=== PATIENT | female | born 1925 | race Hispanic/Latino ===

== ENCOUNTER 2017-03-22 14:13 | Emergency (ER) | payer MEDICARE, BC ==
[2017-03-22 14:25] VITALS: BMI 24.7
[2017-03-22 14:28] VITALS: TEMP 98.1
[2017-03-22] MEDS ORDERED: Lidocaine 1% Inj (20ml) ONE (15:01)
--- NOTE | 2017-03-22 15:07 | ED PDOC ---
Arrival/HPI - General Chief Complaint: Abnormal Skin Integrity Time Seen by Provider: 03/22/17 14:34 Historian: Patient - History of Present Illness Narrative History of Present Illness (Text): 03/22/17 14:50 89yr old female presents today with 1 week history of redness to the right thigh. pt denies fever/chills. c/o minimal sharp pain and pressure sensation to abscess. denies numbness, weakness, tingling in the extremity. no cp or sob. no abdominal pain. Time/Duration: 1 week Symptom Onset: Gradual Symptom Course: Worsening Quality: Aching Severity Level: 3 Past Medical History - Provider Review Nursing Documentation Reviewed: Yes - Travel History Have you recently traveled outside [place] w/in the past 3 mons?: No - Infectious Disease Hx of Infectious Diseases: None - Tetanus Immunization Tetanus Immunization: Unknown - Cardiac Hx Cardiac Disorders: Yes Hx Congestive Heart Failure: Yes Hx Pacemaker: Yes - Pulmonary Hx Respiratory Disorders: No - Neurological Hx Neurological Disorder: No - HEENT Hx HEENT Disorder: Yes Hx Deafness: Yes (BILATERAL HEARING AIDE) - Renal Hx Renal Disorder: Yes - Endocrine/Metabolic Hx Hypothyroidism: Yes - Hematological/Oncological Hx Blood Disorders: No Hx Anemia: Yes - Integumentary Hx Dermatological Disorder: Yes (BILATERAL LEG EDEMA NON PITTING,FLUSHED SKIN, TENSE,) - Musculoskeletal/Rheumatological Hx Musculoskeletal Disorders: Yes Hx Falls: Yes Hx Unsteady Gait: Yes (CANE OR WALKER) - Gastrointestinal Hx Gastrointestinal Disorders: Yes Hx Gastroesophageal Reflux: Yes - Genitourinary/Gynecological Hx Genitourinary Disorders: Yes (URGENCY) - Psychiatric Hx Psychophysiologic Disorder: Yes Hx Anxiety: Yes Hx Depression: No Hx Emotional Abuse: No Hx Physical Abuse: No Hx Substance Use: No - Past Surgical History Past Surgical History: Unable to Obtain - Surgical History Hx Orthopedic Surgery: Yes (RIGHT HIP SX) Other/Comment: breast surgery - Anesthesia Hx Anesthesia: Yes Hx Anesthesia Reactions: No Hx Malignant Hyperthermia: No - Suicidal Assessment Feels Threatened In Home Enviroment: No Family/Social History - Physician Review Nursing Documentation Reviewed: Yes Family/Social History: Unknown Family HX Smoking Status: Never Smoked Hx Alcohol Use: No Hx Substance Use: No Hx Substance Use Treatment: No Allergies/Home Meds Allergies/Adverse Reactions: Allergies No Known Allergies Allergy (Verified 03/22/17 14:25) Home Medications: Home Meds Medication Instructions Recorded Confirmed Escitalopram [Lexapro] 10 mg PO DAILY 12/07/16 02/15/17 Caltrate 600+D Plus Tablet 1 tab PO DAILY 01/25/17 02/15/17 Esomeprazole Magnesium [Nexium] 20 mg PO DAILY 01/25/17 02/15/17 Multivit-Min/FA/Lycopen/Lutein 1 each PO DAILY 01/25/17 02/15/17 [Centrum Silver Tablet] Naproxen [Naprosyn Tab] 500 mg PO DAILY 01/25/17 02/15/17 Aspirin [Adult Low Dose Aspirin EC] 81 mg PO DAILY 02/15/17 02/15/17 Furosemide [Lasix] 20 mg PO DAILY 02/15/17 02/15/17 Levothyroxine [Synthroid] 150 mcg PO DAILY 02/15/17 02/15/17 Review of Systems - Review of Systems Constitutional: absent: Fatigue, Fevers Respiratory: absent: SOB, Cough Cardiovascular: absent: Chest Pain, Palpitations Gastrointestinal: absent: Abdominal Pain, Nausea, Vomiting Genitourinary Female: absent: Dysuria Musculoskeletal: absent: Arthralgias, Back Pain, Neck Pain Skin: Abscess Neurological: absent: Headache, Dizziness Psychiatric: absent: Anxiety, Depression Physical Exam Vital Signs Reviewed: Yes Vital Signs Temp Pulse Resp BP Pulse Ox 03/22/17 15:30 80 18 112/77 98 03/22/17 14:27 98.1 F 76 17 108/76 97 Temperature: Afebrile Blood Pressure: Normal Pulse: Regular Respiratory Rate: Normal Appearance: Positive for: Well-Appearing, Non-Toxic, Comfortable Pain Distress: None Mental Status: Positive for: Alert and Oriented X 3 - Systems Exam Head: Present: Atraumatic Neck: Present: Normal Range of Motion Respiratory/Chest: Present: Clear to Auscultation, Good Air Exchange. No: Respiratory Distress, Accessory Muscle Use Cardiovascular: Present: Regular Rate and Rhythm, Normal S1, S2. No: Murmurs Lower Extremity: Present: Normal ROM, Tenderness (right thigh; there is a 3cm round fluctuant mobile area of erythema along the lateral aspect of the thigh; minimally tender; full rom hip; hip non tender. ambulates with cane. sensation and distal pulses intact. ), Erythema, Neurovascularly Intact, Capillary Refill < 2 s. No: Swelling, Deformity Skin: Present: Warm, Dry Psychiatric: Present: Alert, Oriented x 3 Medical Decision Making ED Course and Treatment: 03/22/17 15:29 Patient is nontoxic well-appearing in no distress. Vital signs are stable. bactrim/kelfex pt seen and evaluated by dr. yusuf; will do I&D and treat with abx. I&D performed; no purulent discharge released; packing placed; will place patient on abx and have patient f/u with surgeon and return in 2 days for packing removal and wound check/re-evaluation. family requesting Dr. Campoverde referral. Patient was advised to use warm compresses. take abx as prescribed. return to the emergency room in 2 days for packing removal. stressed importance of immediate return if symptoms worsen persist or if new symptoms develop; high fevers, increasing pain, redness, swelling or if any other concerning symptoms develop. Patient verbalizes understanding of discharge instructions and need for immediate followup. all aspects of this case were discussed the attending of record. Impression: Abscess, thigh Motrin one tablet every 6 hours as needed for pain Keflex 1 capsule 4 times daily 7 days Bactrim DS: One tablet twice daily x7 days Warm compresses and warm soaks frequently Return in 2 days for packing removal and wound check follow up with the surgeon within the next 2days follow up with the primary care physician within the next 2 days. Return immediately if symptoms worsen persist or if new symptoms develop: High fevers, increasing pain, increasing redness, swelling or if any other concerning symptoms develop. 03/22/17 15:46 - Medication Orders Current Medication Orders: Discontinued Medications Cephalexin Monohydrate (Keflex) 500 mg PO STAT STA PRN Reason: Protocol Stop: 03/22/17 15:25 Last Admin: 03/22/17 15:56 Dose: 500 MG Lidocaine HCl (Lidocaine 1% (20ml)) Confirm Administered Dose 20 ml .ROUTE .STK- MED ONE Stop: 03/22/17 15:02 Last Admin: 03/22/17 15:43 Dose: 20 ML Trimethoprim/Sulfamethoxazole (Bactrim Ds Tab) 1 tab PO STAT STA PRN Reason: Protocol Stop: 03/22/17 15:25 Last Admin: 03/22/17 15:56 Dose: 1 TAB Procedures - Incision and Drainage Site: right thigh Blade Size: 11 I & D Procedure: sterile drapes applied, sterile dressing applied, gauze wick placed Progress: right thigh; 3cm abscess 2cc lidocaine injected locally using sterile technique; adequate anesthesia, small incision made of central fluctuance; no purulent discharge released; 1/ 4in packing placed. dressing applied. pt tolerated procedure well, no complications. Disposition/Present on Arrival - Present on Arrival Any Indicators Present on Arrival: No History of DVT/PE: No History of Uncontrolled Diabetes: No Urinary Catheter: No History of Decub. Ulcer: No History Surgical Site Infection Following: None - Disposition Have Diagnosis and Disposition been Completed?: Yes Diagnosis: Abscess of thigh Disposition: HOME/ ROUTINE Disposition Time: 15:25 Patient Plan: Discharge Condition: GOOD Discharge Instructions (ExitCare): Abscess (ED) Additional Instructions: tylenol every 4 hours as needed for pain Bactrim DS: One tablet twice daily x7 days keflex; 1 capsule 4 times daily x 7 days Warm compresses frequently Return in 2 days for packing removal and wound check Follow up with the surgeon within the next 2 days Follow up with the primary care physician within the next 2 days. Return immediately if symptoms worsen persist or if new symptoms develop: High fevers, increasing pain, increasing redness, swelling or if any other concerning symptoms develop. Prescriptions: Sulfamethoxazole/Trimethoprim [Bactrim DS 800 mg-160 mg] 1 tab PO BID #14 tab Cephalexin [Keflex] 500 mg PO QID #28 capsule Referrals: Jeyson Campoverde MD [Staff Provider] - Follow up with primary Cole Polanco DO [Staff Provider] - Follow up with primary Alton Simms MD [Primary Care Provider] - Follow up with primary
[2017-03-22] MEDS ORDERED: Tmp-Smz 800 mg-160 mg DS Tab PO STA (15:24)
[2017-03-22 16:03] VITALS: BP 112/77; PULSE 80; RESP 18; O2SAT 98
== END 2017-03-22 16:14 | disposition home or self-care (01) ==
LOC: ED 14:13
DX: L02.415 Cutaneous abscess of right lower limb (principal)

== ENCOUNTER 2017-06-09 11:06 | Observation (INO) | payer MEDICARE, BC ==
[2017-06-09 12:29] LABS: BASO # 0.01 K/mm3 (0.0-2.0); BASO % 0.2 % (0.0-3.0); EOS # 0.4 (0.0-0.7); EOS % 8.6 % (1.5-5.0); GRAN # 1.81 (1.4-6.5); LYMPH # 1.3 (1.2-3.4); LYMPH % 29.7 % (22.0-35.0); MEAN CELL VOLUME 95.6 fL (80.0-105.0); MEAN CORPUSCULAR HEMOGLOBIN 29.2 pg (25.0-35.0); MEAN CORPUSCULAR HGB CONC 30.6 g/dl (31.0-37.0); MEAN PLATELET VOLUME 9.8 fl (7.0-11.0); MONO # 0.8 (0.1-0.6); MONO % 19.5 % (1.0-6.0); PLATELET COUNT 241 10^3/uL (120.0-450.0); RBC 2.26 10^6/uL (3.5-6.1); RED CELL DISTRIBUTION WIDTH 19.7 % (11.5-14.5); WHITE BLOOD COUNT 4.3 10^3/ul (4.5-11.0)
[2017-06-09 12:34] LABS: HEMOGLOBIN 6.6 gm/dL (12.0-16.0)
[2017-06-09 12:36] LABS: ALB/GLOB RATIO 1.4 (1.1-1.8); ALBUMIN 3.9 g/dL (3.0-4.8); ALT/SGPT 22 U/L (7-56); AMYLASE 95 U/L (35-125); AST/SGOT 32 U/L (15-39); BLOOD UREA NITROGEN 34 mg/dL (7-21); CALCIUM 9.2 mg/dL (8.4-10.5); GFR AFRICAN-AMERICAN 57; GFR NON-AFRICAN AMERICAN 47; LIPASE 51 U/L (23-300)
[2017-06-09 12:37] LABS: INR 1.06 (0.93-1.08); PARTIAL THROMBOPLASTIN TIME 26.3 Seconds (23.7-30.8); PROTHROMBIN TIME 11.5 Seconds (9.9-11.8)
--- NOTE | 2017-06-09 12:40 | ED PDOC ---
Arrival/HPI - General Chief Complaint: Medical Clearance Time Seen by Provider: 06/09/17 11:13 Historian: Patient - History of Present Illness Narrative History of Present Illness (Text): 06/09/17 12:12 A 89 year old female, whose past medical history includes iron deficiency and right hip replacement, who is advised to come to the emergency department by her hydrodynamicist. Patient reports yesterday she went to her hydrodynamicist's office and received an iron infusion and this morning she received a phone call from her office stating her hemoglobin is low and she should come to the emergency department for a blood transfusion. Patient notes she does have some fatigue. She says she denies any fever, chills, nausea, vomiting, chest pain, shortness of breath, headache, dizziness or any other complaints at this time. Social Services Analyst: Dr. Castillo Past Medical History - Provider Review Nursing Documentation Reviewed: Yes - Infectious Disease Hx of Infectious Diseases: None - Tetanus Immunization Tetanus Immunization: Unknown - Reproductive Menopause: Yes - Cardiac Hx Cardiac Disorders: Yes Hx Congestive Heart Failure: Yes Hx Pacemaker: Yes - Pulmonary Hx Respiratory Disorders: No - Neurological Hx Neurological Disorder: No - HEENT Hx HEENT Disorder: Yes Hx Deafness: Yes (BILATERAL HEARING AIDE) - Renal Hx Renal Disorder: Yes - Endocrine/Metabolic Hx Hypothyroidism: Yes - Hematological/Oncological Hx Blood Disorders: No Hx Anemia: Yes - Integumentary Hx Dermatological Disorder: Yes (BILATERAL LEG EDEMA NON PITTING,FLUSHED SKIN, TENSE,) - Musculoskeletal/Rheumatological Hx Musculoskeletal Disorders: Yes Hx Falls: Yes Hx Unsteady Gait: Yes (CANE OR WALKER) - Gastrointestinal Hx Gastrointestinal Disorders: Yes Hx Gastroesophageal Reflux: Yes - Genitourinary/Gynecological Hx Genitourinary Disorders: Yes (URGENCY) - Psychiatric Hx Psychophysiologic Disorder: Yes Hx Anxiety: Yes Hx Depression: No Hx Emotional Abuse: No Hx Physical Abuse: No Hx Substance Use: No - Past Surgical History Past Surgical History: Unable to Obtain - Surgical History Hx Orthopedic Surgery: Yes (RIGHT HIP SX) Other/Comment: breast surgery - Anesthesia Hx Anesthesia: Yes Hx Anesthesia Reactions: No Hx Malignant Hyperthermia: No - Suicidal Assessment Feels Threatened In Home Enviroment: No Family/Social History - Physician Review Nursing Documentation Reviewed: Yes Family/Social History: Unknown Family HX Smoking Status: Never Smoked Hx Alcohol Use: No Hx Substance Use: No Hx Substance Use Treatment: No Allergies/Home Meds Allergies/Adverse Reactions: Allergies No Known Allergies Allergy (Verified 06/09/17 11:31) Home Medications: Home Meds Medication Instructions Recorded Confirmed Escitalopram [Lexapro] 10 mg PO DAILY 12/07/16 02/15/17 Caltrate 600+D Plus Tablet 1 tab PO DAILY 01/25/17 02/15/17 Esomeprazole Magnesium [Nexium] 20 mg PO DAILY 01/25/17 02/15/17 Multivit-Min/FA/Lycopen/Lutein 1 each PO DAILY 01/25/17 02/15/17 [Centrum Silver Tablet] Naproxen [Naprosyn Tab] 500 mg PO DAILY 01/25/17 02/15/17 Aspirin [Adult Low Dose Aspirin EC] 81 mg PO DAILY 02/15/17 02/15/17 Furosemide [Lasix] 20 mg PO DAILY 02/15/17 02/15/17 Levothyroxine [Synthroid] 150 mcg PO DAILY 02/15/17 02/15/17 Review of Systems - Physician Review All systems were reviewed & negative as marked: Yes - Review of Systems Constitutional: Fatigue (but usual). absent: Fevers Respiratory: absent: SOB Cardiovascular: absent: Chest Pain Gastrointestinal: absent: Abdominal Pain, Nausea, Vomiting, Hematochezia Genitourinary Female: absent: Hematuria Musculoskeletal: absent: Back Pain, Neck Pain Neurological: absent: Headache, Dizziness Physical Exam Vital Signs Reviewed: Yes Vital Signs Temp Pulse Resp BP Pulse Ox 06/09/17 11:24 98.5 F 82 20 119/46 L 97 Temperature: Afebrile Blood Pressure: Hypotensive Pulse: Regular Respiratory Rate: Normal Appearance: Positive for: Well-Appearing, Non-Toxic, Comfortable Pain Distress: None Mental Status: Positive for: Alert and Oriented X 3 - Systems Exam Head: Present: Atraumatic, Normocephalic Pupils: Present: PERRL Conjunctiva: Present: Other (pale) Mouth: Present: Moist Mucous Membranes Pharnyx: Present: Normal. No: ERYTHEMA, EXUDATE Neck: Present: Normal Range of Motion Respiratory/Chest: Present: Clear to Auscultation, Good Air Exchange. No: Respiratory Distress, Accessory Muscle Use Cardiovascular: Present: Regular Rate and Rhythm, Murmurs, Normal S1, S2 Abdomen: Present: Normal Bowel Sounds. No: Tenderness, Distention, Peritoneal Signs Back: Present: Normal Inspection Upper Extremity: Present: Normal Inspection. No: Cyanosis, Edema Lower Extremity: Present: Edema (trace edema bilaterally) Neurological: Present: GCS=15, CN II-XII Intact, Speech Normal Skin: Present: Warm, Dry, Normal Color. No: Rashes Psychiatric: Present: Alert, Oriented x 3, Normal Insight, Normal Concentration Medical Decision Making ED Course and Treatment: 06/09/17 12:12 Impression: A 89 year old female with a low hemoglobin count. Differential Diagnosis included but are not limited to: anemia Plan: -- Labs -- Reassess and disposition Prior Visits: Notes and results from previous visits were reviewed. The patient last presented to the emergency department on 03/25/17 for evaluation of redness to the right thigh. Progress Notes: 06/09/17 13:29 Patient with noted history. Hgb is 6.6 - will need at least 2 units PRBC for transfusion. She is hemodynamically stable with no cardiopulmonary symptoms - will place on observation for blood transfusion; consented for transfusion. Case discussed with Dr. Castillo for placement on her service. - Lab Interpretations Lab Results: 06/09/17 11:40 06/09/17 11:40 Lab Results 06/09/17 11:50: Blood Type Pending, Antibody Screen Pending, Crossmatch See Detail, BBK History Checked Patient has bt 06/09/17 11:40: Sodium 142, Potassium 4.1, Chloride 107, Carbon Dioxide 24, Anion Gap 15, BUN 34 H, Creatinine 1.1, Est GFR ( Amer) 57, Est GFR (Non- Af Amer) 47, Random Glucose 92, Calcium 9.2, Total Bilirubin 0.3, AST 32, ALT 22 , Alkaline Phosphatase 47, Lactate Dehydrogenase 501, Total Creatine Kinase 40, Troponin I < 0.01, Total Protein 6.7, Albumin 3.9, Globulin 2.8, Albumin/ Globulin Ratio 1.4, Amylase 95, Lipase 51 06/09/17 11:40: PT 11.5, INR 1.06, APTT 26.3 06/09/17 11:40: WBC 4.3 L D, RBC 2.26 L, Hgb 6.6 L* D, Hct 21.6 L, MCV 95.6, MCH 29.2, MCHC 30.6 L, RDW 19.7 H, Plt Count 241, MPV 9.8, Gran % 42.0 L, Lymph % (Auto) 29.7, [place] % (Auto) 19.5 H, Eos % (Auto) 8.6 H, Baso % (Auto) 0.2, Gran # 1.81, Lymph # 1.3, [place] # 0.8 H, Eos # 0.4, Baso # 0.01 I have reviewed the lab results: Yes - Scribe Statement The provider has reviewed the documentation as recorded by the Prestonibe Antonietta Berman Provider Scribe Attestation: All medical record entries made by the Prestonibfallon were at my direction and personally dictated by me. I have reviewed the chart and agree that the record accurately reflects my personal performance of the history, physical exam, medical decision making, and the department course for this patient. I have also personally directed, reviewed, and agree with the discharge instructions and disposition. Disposition/Present on Arrival - Present on Arrival Any Indicators Present on Arrival: No History of DVT/PE: No History of Uncontrolled Diabetes: No Urinary Catheter: No History of Decub. Ulcer: No History Surgical Site Infection Following: None - Disposition Have Diagnosis and Disposition been Completed?: Yes Diagnosis: Anemia Disposition: HOSPITALIZED Disposition Time: 13:00 Patient Plan: Observation Condition: FAIR
[2017-06-09 13:20] LABS: TROPONIN I < 0.01 ng/mL
--- NOTE | 2017-06-09 15:25 | RAD ---
HISTORY: anemia COMPARISON: 12/10/2016 TECHNIQUE: Chest PA and lateral FINDINGS: LUNGS: No active pulmonary disease. PLEURA: No significant pleural effusion identified. No pneumothorax apparent. CARDIOVASCULAR: Normal. OSSEOUS STRUCTURES: No significant abnormalities. VISUALIZED UPPER ABDOMEN: Normal. OTHER FINDINGS: Dual lead pacemaker IMPRESSION: No active disease.
[2017-06-09] MEDS ORDERED: Non Formulary Medication (Esomeprazole Magnesium [Nexium] 20 MG) PO SCH (16:30)
[2017-06-09] MEDS ORDERED: Levothyroxine 125 MCG TAB PO SCH (16:30)
[2017-06-09 19:19] VITALS: BMI 23.3
[2017-06-10 05:47] VITALS: PULSE 68; RESP 19
[2017-06-10] MEDS ORDERED: Pantoprazole 40 mg EC Tab PO SCH (07:30)
[2017-06-10] MEDS ORDERED: Levothyroxine 150 MCG TAB PO SCH (07:30)
[2017-06-10 07:40] VITALS: BP 144/62; TEMP 98; O2SAT 97
[2017-06-10 07:43] LABS: BASO # 0.01 K/mm3 (0.0-2.0); BASO % 0.2 % (0.0-3.0); EOS # 0.2 (0.0-0.7); EOS % 4.1 % (1.5-5.0); GRAN # 2.52 (1.4-6.5); HEMOGLOBIN 9.4 gm/dL (12.0-16.0); LYMPH # 0.6 (1.2-3.4); LYMPH % 13.8 % (22.0-35.0); MEAN CELL VOLUME 93.8 fL (80.0-105.0); MEAN CORPUSCULAR HEMOGLOBIN 29.3 pg (25.0-35.0); MEAN CORPUSCULAR HGB CONC 31.2 g/dl (31.0-37.0); MEAN PLATELET VOLUME 9.5 fl (7.0-11.0); MONO # 1.1 (0.1-0.6); MONO % 24.9 % (1.0-6.0); PLATELET COUNT 186 10^3/uL (120.0-450.0); RBC 3.21 10^6/uL (3.5-6.1); RED CELL DISTRIBUTION WIDTH 17.9 % (11.5-14.5); WHITE BLOOD COUNT 4.4 10^3/ul (4.5-11.0)
[2017-06-10 07:58] LABS: BLOOD UREA NITROGEN 24 mg/dL (7-21); GFR AFRICAN-AMERICAN > 60; GFR NON-AFRICAN AMERICAN 52
--- NOTE | 2017-06-10 22:38 | CP.PCM.HP ---
History of Present Illness - History of Present Illness History of Present Illness: Ms. Gonzalez is a 89 year old female who was found to have Hemoglobin of 6.5 on 06/08 on a CBC done in office. She was advised to go to ER for evaluation and blood transfusion. 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 Bundy . She has been gettin IV iron in office. She has required blood transfusion few times in recent past. Stool occult blood has been positive . No obvious GI bleed. She has chronic infection in right thigh . She has been advised that hip prosthesis on right side need to be changed. Denies shortness of breath. Present on Admission - Present on Admission Any Indicators Present on Admission: No Review of Systems - Constitutional Constitutional: Fatigue, Malaise, Weakness - EENT Eyes: absent: As Per HPI, Blind Spots, Blurred Vision, Change in Vision, Decreased Night Vision, Diplopia, Discharge, Dry Eye, Exophthalmos, Floaters, Irritation, Itchy Eyes, Loss of Peripheral Vision, Pain, Photophobia, Requires Corrective Lenses, Sees Flashes, Spots in Vision, Tunnel Vision, Other Visual Disturbances, Loss of Vision, Other Ears: absent: As Per HPI, Decreased Hearing, Ear Discharge, Ear Pain, Tinnitus, Abnormal Hearing, Disequilibrium, Dizziness, Other Nose/Mouth/Throat: absent: As Per HPI, Epistaxis, Nasal Congestion, Nasal Discharge, Nasal Obstruction, Nasal Trauma, Nose Pain, Post Nasal Drip, Sinus Pain, Sinus Pressure, Bleeding Gums, Change in Voice, Dental Pain, Dry Mouth, Dysphagia, Halitosis, Hoarsness, Lip Swelling, Mouth Lesions, Mouth Pain, Odynophagia, Sore Throat, Throat Swelling, Tongue Swelling, Facial Pain, Neck Pain, Neck Mass, Other - Breasts Breasts: absent: As Per HPI, Change in Shape, Mass, Pain, Nipple Discharge, Nipple Inversion, Skin Changes, Swelling, Other - Cardiovascular Cardiovascular: As Per HPI - Respiratory Respiratory: absent: As Per HPI, Cough, Dyspnea, Hemoptysis, Dyspnea on Exertion , Wheezing, Snoring, Stridor, Pain on Inspiration, Chest Congestion, Excessive Mucous Production, Change in Mucous Color, Pain with Coughing, Other - Gastrointestinal Gastrointestinal: As Per HPI - Genitourinary Genitourinary: absent: As Per HPI, Change in Urinary Stream, Difficulty Urinating, Dysuria, Flank Pain, Hematuria, Pyuria, Nocturia, Urinary Incontinence, Urinary Frequency, Urinary Hesitance, Urinary Urgency, Voiding Freq/Small Amts, Freq UTI, Hx Renal/Bladder Calculi, Hx /Renal Surgery, Bladder Distension, Other - Integumentary Integumentary: As Per HPI - Neurological Neurological: absent: As Per HPI, Abnormal Gait, Abnormal Hearing, Abnormal Movements, Abnormal Speech, Behavioral Changes, Burning Sensations, Confusion, Convulsions, Disequilibrium, Dizziness, Numbness, Focal Weakness, Frequent Falls , Headaches, Lack of Coordination, Loss of Vision, Memory Loss, Paresthesias, Radicular Pain, Restless Legs, Sensory Deficit, Syncope, Tingling, Tremor, Vertigo, Weakness, Other Visual Disturbances, Other - Psychiatric Psychiatric: absent: As Per HPI, Abnormal Sleep Pattern, Anhedonia, Anxiety, Auditory Hallucinations, Behavioral Changes, Change in Appetite, Change in Libido, Confusion, Depression, Difficulty Concentrating, Hallucinations, Homicidal Ideation, Hopelessness, Irritability, Memory Loss, Mood Swings, Panic Attacks, Paranoia, Suicidal Ideation, Visual Hallucinations, Tactile Hallucinations, Other - Endocrine Endocrine: absent: As Per HPI, Change in Body Appearance, Change in Libido, Cold Intolorance, Deepening of Voice, Excessive Sweating, Fatigue, Flushing, Heat Intolorance, Increase in Ring/Shoe/Hat Size, Palpitations, Polydipsia, Polyphagia, Polyuria, Other - Hematologic/Lymphatic Hematologic: As Per HPI Past Patient History - Infectious Disease Hx of Infectious Diseases: None - Tetanus Immunizations Tetanus Immunization: Unknown - Past Medical History & Family History Past Medical History?: Yes Past Family History: Reviewed and not pertinent - Past Social History Smoking Status: Never Smoked - CARDIAC Hx Cardiac Disorders: Yes Hx Congestive Heart Failure: Yes Hx Pacemaker: Yes - PULMONARY Hx Respiratory Disorders: No - NEUROLOGICAL Hx Neurological Disorder: No - HEENT Hx HEENT Problems: Yes Hx Deafness: Yes (BILATERAL HEARING AIDE) - RENAL Hx Chronic Kidney Disease: Yes - ENDOCRINE/METABOLIC Hx Hypothyroidism: Yes - HEMATOLOGICAL/ONCOLOGICAL Hx Blood Disorders: No (Iron deficiency) Hx Anemia: Yes - INTEGUMENTARY Hx Dermatological Problems: Yes (BILATERAL LEG EDEMA NON PITTING,FLUSHED SKIN, TENSE,) - MUSCULOSKELETAL/RHEUMATOLOGICAL Hx Musculoskeletal Disorders: Yes Hx Falls: Yes Hx Unsteady Gait: Yes (CANE OR WALKER) - GASTROINTESTINAL Hx Gastrointestinal Disorders: Yes Hx Gastroesophageal Reflux: Yes - GENITOURINARY/GYNECOLOGICAL Hx Genitourinary Disorders: Yes (URGENCY) - PSYCHIATRIC Hx Psychophysiologic Disorder: Yes Hx Anxiety: Yes Hx Depression: No Hx Emotional Abuse: No Hx Physical Abuse: No - SURGICAL HISTORY Hx Surgeries: Yes (breast surgery) Hx Orthopedic Surgery: Yes (RIGHT HIP SX x2) - ANESTHESIA Hx Anesthesia: Yes Hx Anesthesia Reactions: No Hx Malignant Hyperthermia: No Meds Allergies/Adverse Reactions: Allergies Allergy/AdvReac Type Severity Reaction Status Date / Time No Known Allergies Allergy Verified 06/09/17 19:07 Physical Exam - Constitutional Appears: Well, Non-toxic - Head Exam Head Exam: ATRAUMATIC, NORMAL INSPECTION, NORMOCEPHALIC - Eye Exam Eye Exam: Normal appearance - ENT Exam ENT Exam: Mucous Membranes Moist - Neck Exam Neck exam: Positive for: Normal Inspection - Cardiovascular Exam Cardiovascular Exam: REGULAR RHYTHM, +S1, +S2 - GI/Abdominal Exam GI & Abdominal Exam: Normal Bowel Sounds, Soft - Extremities Exam Extremities exam: Positive for: normal inspection - Back Exam Back exam: NORMAL INSPECTION - Neurological Exam Neurological exam: Alert, Normal Gait, Oriented x3 - Psychiatric Exam Psychiatric exam: Normal Affect, Normal Mood - Skin Skin Exam: Normal Color, Warm Results - Vital Signs Recent Vital Signs: Last Vital Signs Temp 98 F 06/10/17 07:40 Pulse 68 06/10/17 07:40 Resp 19 06/10/17 07:40 BP 144/62 06/10/17 07:40 Pulse Ox 97 06/10/17 07:40 - Labs Result Diagrams: 06/10/17 07:00 06/10/17 07:00 Labs: Laboratory Results - last 24 hr 06/10/17 06/10/17 07:00 07:00 WBC 4.4 L RBC 3.21 L Hgb 9.4 L Hct 30.1 L MCV 93.8 MCH 29.3 MCHC 31.2 RDW 17.9 H Plt Count 186 MPV 9.5 Gran % 57.0 Lymph % (Auto) 13.8 L [place] % (Auto) 24.9 H Eos % (Auto) 4.1 Baso % (Auto) 0.2 Gran # 2.52 Lymph # 0.6 L [place] # 1.1 H Eos # 0.2 Baso # 0.01 Sodium 142 Potassium 3.7 Chloride 107 Carbon Dioxide 26 Anion Gap 13 BUN 24 H Creatinine 1.0 Est GFR ( Amer) > 60 Est GFR (Non-Af Amer) 52 Random Glucose 90 Calcium 9.0 Assessment & Plan - Assessment and Plan (Free Text) Assessment: 1. Severe Anemia : Hb 6.5 gm/dl. 2 units of PRBC ordered. Lasix 20 mg after second unit. She has occult GI bleed . Stool occult blood positive. She had EGD, colonoscopy this year. Has an AVM in stomach cauterized . 2. CHF : compensated. Continue lasix 20 mg daily. 3. COPD : stable. 4. Right thigh chronic infection : follows with ortho. wound vac discontinued. - Date & Time Date: 06/09/17 Time: 18:00
--- NOTE | 2017-06-10 22:50 | CP.PCM.DIS ---
Provider - Provider Date of Admission: 06/09/17 13:15 Attending physician: Soraida Castillo MD Primary care physician: Eh Weaver MD Time Spent in preparation of Discharge (in minutes): 55 Diagnosis - Discharge Diagnosis (1) CHF (congestive heart failure) Status: Chronic Comment: stable. (2) COPD (chronic obstructive pulmonary disease) Status: Chronic Comment: stable (3) Non-pressure chronic ulcer of right thigh Status: Chronic Comment: chronic (4) Anemia Status: Acute Comment: acute on chronic anemia (5) Iron (Fe) deficiency anemia Status: Acute Comment: occult GI bleed (6) Anemia Status: Acute Hospital Course - Lab Results Lab Results: Most Recent Lab Values WBC 4.4 10^3/ul (4.5-11.0) L 06/10/17 07:00 RBC 3.21 10^6/uL (3.5-6.1) L 06/10/17 07:00 Hgb 9.4 gm/dL (12.0-16.0) L 06/10/17 07:00 Hct 30.1 % (36.0-48.0) L 06/10/17 07:00 MCV 93.8 fL (80.0-105.0) 06/10/17 07:00 MCH 29.3 pg (25.0-35.0) 06/10/17 07:00 MCHC 31.2 g/dl (31.0-37.0) 06/10/17 07:00 RDW 17.9 % (11.5-14.5) H 06/10/17 07:00 Plt Count 186 10^3/uL (120.0-450.0) 06/10/17 07:00 MPV 9.5 fl (7.0-11.0) 06/10/17 07:00 Gran % 57.0 % (50.0-68.0) 06/10/17 07:00 Lymph % (Auto) 13.8 % (22.0-35.0) L 06/10/17 07:00 [place] % (Auto) 24.9 % (1.0-6.0) H 06/10/17 07:00 Eos % (Auto) 4.1 % (1.5-5.0) 06/10/17 07:00 Baso % (Auto) 0.2 % (0.0-3.0) 06/10/17 07:00 Gran # 2.52 (1.4-6.5) 06/10/17 07:00 Lymph # 0.6 (1.2-3.4) L 06/10/17 07:00 [place] # 1.1 (0.1-0.6) H 06/10/17 07:00 Eos # 0.2 (0.0-0.7) 06/10/17 07:00 Baso # 0.01 K/mm3 (0.0-2.0) 06/10/17 07:00 PT 11.5 Seconds (9.9-11.8) 06/09/17 11:40 INR 1.06 (0.93-1.08) 06/09/17 11:40 APTT 26.3 Seconds (23.7-30.8) 06/09/17 11:40 Sodium 142 mmol/L (132-148) 06/10/17 07:00 Potassium 3.7 mmol/L (3.6-5.0) 06/10/17 07:00 Chloride 107 mmol/L (98-107) 06/10/17 07:00 Carbon Dioxide 26 mmol/L (21-33) 06/10/17 07:00 Anion Gap 13 (10-20) 06/10/17 07:00 BUN 24 mg/dL (7-21) H 06/10/17 07:00 Creatinine 1.0 mg/dL (0.5-1.4) 06/10/17 07:00 Est GFR ( Amer) > 60 06/10/17 07:00 Est GFR (Non-Af Amer) 52 06/10/17 07:00 Random Glucose 90 mg/dL (70-110) 06/10/17 07:00 Calcium 9.0 mg/dL (8.4-10.5) 06/10/17 07:00 Total Bilirubin 0.3 mg/dL (0.2-1.3) 06/09/17 11:40 AST 32 U/L (15-39) 06/09/17 11:40 ALT 22 U/L (7-56) 06/09/17 11:40 Alkaline Phosphatase 47 U/L (38-133) 06/09/17 11:40 Lactate Dehydrogenase 501 U/L (333-699) 06/09/17 11:40 Total Creatine Kinase 40 U/L (35-230) 06/09/17 11:40 Troponin I < 0.01 ng/mL 06/09/17 11:40 Total Protein 6.7 g/dL (5.8-8.3) 06/09/17 11:40 Albumin 3.9 g/dL (3.0-4.8) 06/09/17 11:40 Globulin 2.8 gm/dL 06/09/17 11:40 Albumin/Globulin Ratio 1.4 (1.1-1.8) 06/09/17 11:40 Amylase 95 U/L (35-125) 06/09/17 11:40 Lipase 51 U/L (23-300) 06/09/17 11:40 Blood Type O POSITIVE 06/09/17 11:50 Antibody Screen Positive 06/09/17 11:50 Antibody Identification Anti S 06/09/17 11:50 Crossmatch See Detail 06/09/17 11:50 BBK History Checked Patient has bt 06/09/17 11:50 - Hospital Course Hospital Course: She was admitted with severe anemia with Hb 6.5 . She received 2 units of PRBCs. Hb imroved to 9.4 . Cardiac status stable. continued on home meds. Discharge Exam - Head Exam Head Exam: ATRAUMATIC, NORMAL INSPECTION, NORMOCEPHALIC - Eye Exam Eye Exam: Normal appearance Pupil Exam: NORMAL ACCOMODATION - ENT Exam ENT Exam: absent: Mucous Membranes Dry, Mucous Membranes Moist, Normal Exam, Normal External Ear Exam, Normal Oropharynx, TM's Normal Bilaterally - Neck Exam Neck exam: Normal Inspection - Respiratory Exam Respiratory Exam: NORMAL BREATHING PATTERN, UNREMARKABLE - Cardiovascular Exam Cardiovascular Exam: REGULAR RHYTHM, +S1, +S2 - GI/Abdominal Exam GI & Abdominal Exam: Normal Bowel Sounds, Unremarkable - Back Exam Back exam: NORMAL INSPECTION - Neurological Exam Neurological exam: Alert, Normal Gait, Oriented x3, Reflexes Normal - Skin Skin Exam: Normal Color, Warm Discharge Plan - Follow Up Plan Condition: GOOD Disposition: HOME/ ROUTINE Instructions: Pneumococcal Vaccine for Adults (DC), Anemia (DC), Hypertension ( DC), Hypertension (GEN) Additional Instructions: Follow up with Primary MD in one week. Follow up with Dr. Castillo in one week. Continue all home medications. Referrals: Padkowsky MD,Eh Mcallister MD [Primary Care Provider] - Soraida Castillo MD [Staff Provider] -
--- NOTE | 2017-06-11 09:42 | CON ---
DATE: 06/10/2017 REQUESTING PHYSICIAN: Soraida Castillo MD REASON FOR CONSULTATION: I have been asked to see this 89-year-old female with known chronic iron deficiency anemia requiring iron infusions weekly who was found to be profoundly anemic with hemoglobin of 6.[address] Castillo's office. She was advised admission to the hospital for blood transfusions. The patient denies any overt GI bleeding, melena, nausea, vomiting or hematemesis. The patient presented with severe anemia with hemoglobin of 6.7 in 11/2016. At that time, she had an upper endoscopy which showed a large 4 cm hiatal hernia and a small AVM of the duodenum which was cauterized with APC. She also had a colonoscopy which revealed some hyperplastic polyps and diverticulosis. This was also performed in 11/2016. She currently denies any nonsteroidal or aspirin use. PAST MEDICAL HISTORY: Notable for chronic iron deficiency anemia requiring blood transfusions, GERD, degenerative joint disease, anxiety. PAST SURGICAL HISTORY: Notable for breast surgery and right hip surgery. SOCIAL HISTORY: She denies cigarette smoking and alcohol use. FAMILY HISTORY: Noncontributory. REVIEW OF SYSTEMS: A 14-point review of systems is notable for generalized weakness, easy fatigue. She denies nausea, vomiting, chest pain, shortness of breath, dyspnea on exertion. PHYSICAL EXAMINATION GENERAL: Elderly female lying in bed awake, alert, in no acute distress. VITAL SIGNS: Reveal temperature of 98, blood pressure of 144/62, heart rate 68. HEENT: Reveal sclerae to be white. Conjunctivae pale. NECK: Supple. CARDIOPULMONARY: She does have a permanent pacemaker. LUNGS: Chest reveal lungs to be clear. HEART: Exam reveals a regular rate and rhythm. ABDOMEN: Soft and nontender. EXTREMITIES: Show no edema. LABORATORY DATA: Reveal hemoglobin 9.4 after blood transfusion, white blood cell count 4.4, platelet count of 186,000. RDW 17.9, SED rate 34. Chemistries reveal normal electrolytes. BUN 24, creatinine 1.0. IMPRESSION: This is an 89-year-old female with chronic recurrent iron deficiency anemia requiring iron transfusions and blood transfusions. Her count has improved almost 3 g from 6.6 to 9.4 with blood transfusions. She wants to go home. There is no signs of overt GI bleeding. RECOMMENDATIONS: I have asked the patient to see me as an outpatient and we will perform a repeat elective upper endoscopy. Patient may also need a capsule endoscopy. Alton Bundy MD
== END 2017-06-10 08:30 | disposition home or self-care (01) ==
LOC: ED 11:06 → ERH 13:15 → 5RNO 15:32
PROVIDERS: ADMIT Internal Medicine Medical Oncology; ATTEND Internal Medicine Medical Oncology
DX: D50.9 Iron deficiency anemia, unspecified (principal); K31.819 Angiodysplasia of stomach and duodenum without bleeding; I50.9 Heart failure, unspecified; J44.9 Chronic obstructive pulmonary disease, unspecified; L97.119 Non-pressure chronic ulcer of right thigh with unspecified severity; E03.9 Hypothyroidism, unspecified; K21.9 Gastro-esophageal reflux disease without esophagitis; M19.90 Unspecified osteoarthritis, unspecified site; F41.9 Anxiety disorder, unspecified; Z97.4 Presence of external hearing-aid; Z79.82 Long term (current) use of aspirin
CPT/HCPCS: 36415; 36430; 71020; 80048; 80053; 82150; 82550; 83615; 83690; 84484; 85025; 85610; 85730; 86850; 86870; 86900; 86920; 86921; 86922; 99284; C9113; G0378; P9016